=== PATIENT | male | born 1990 | race Caucasian/White ===

== ENCOUNTER 2019-12-21 16:15 | Emergency (ER) | payer MEDICARE, MEDICAID ==
--- NOTE | 2019-12-21 16:39 | EDM.PDOC ---
ED HPI GENERAL MEDICAL PROBLEM - General Chief Complaint: Skin Complaint Stated Complaint: Drainage from incision site Time Seen by Provider: 12/21/19 16:22 Source of Information: Reports: Patient - History of Present Illness INITIAL COMMENTS - FREE TEXT/NARRATIVE: Underwent liposuction to the left lower extremity 15 December 2019. Was placed on antibiotic for 5 days thereafter and was compliant. Moving about with routine ADL noted drainage from the proximal sugar aspect leg. There is fluid appearance with no warmth no pain feeling pressure improved after drainage occurred. Today getting into his vehicle pressure increased and a escort of fluid exited through the puncture site. No bleeding, no pain, no heat to the leg area. Onset: Today Duration: Minutes: Location: Reports: Lower Extremity, Left Quality: Reports: Pressure Severity: Moderate Improves with: Reports: None Worsens with: Reports: None - Related Data Allergies Allergy/AdvReac Type Severity Reaction Status Date / Time Penicillins Allergy Mild Rash Verified 12/21/19 16:37 sulfamethoxazole Allergy Rash Verified 12/21/19 16:37 [From Bactrim] trimethoprim [From Bactrim] Allergy Rash Verified 12/21/19 16:37 Home Meds: Home Meds Metoprolol Tartrate [Lopressor] 100 mg PO BID 04/11/14 [History] Phentermine HCl 37.5 mg PO DAILY 04/11/14 [History] buPROPion HCL [buPROPion SR] 200 mg PO BID 04/11/14 [History] Past Medical History Musculoskeletal History: Reports: None Psychiatric History: Reports: Developmental Delay - Past Surgical History Other Musculoskeletal Surgeries/Procedures:: Liposuction Social & Family History - Family History Family Medical History: Noncontributory - Living Situation & Occupation Living situation: Reports: with Family Occupation: Unemployed ED ROS GENERAL - Review of Systems Review Of Systems: Comprehensive ROS is negative, except as noted in HPI. ED EXAM, GENERAL - Physical Exam Exam: See Below Free Text/Narrative:: Alert oriented no distress. HEENT negative discharge or deformity. There is no respiratory distress with full breath motion and no audible wheezes. Focused examination left lower extremity shows puncture site from his liposuction to the mid medial left thigh with appearance of serous drainage. There is no warmth to touch, nor any exudate. Bruising as one would expect 5 days post procedure. Motion is intact he is able ambulate into the department with no discomfort. Departure - Departure Time of Disposition: 16:40 Disposition: Home, Self-Care 01 Condition: Good Clinical Impression: Drainage from surgical wound - Discharge Information *PRESCRIPTION DRUG MONITORING PROGRAM REVIEWED*: Not Applicable *COPY OF PRESCRIPTION DRUG MONITORING REPORT IN PATIENT ASHLYN: Not Applicable Forms: ED Department Discharge Additional Instructions: Continue your medications as directed and follow-up with your appointment on Friday as scheduled. Serous fluid drainage, no evidence of infection, culture pending will advise if antibiotics are needed. Follow-up with your surgical service on Friday as scheduled. - Problem List & Annotations (1) Drainage from surgical wound SNOMED Code(s): 670755618 Code(s): [id number] - Status: Acute Priority: High Current Visit: Yes Annotation/Comment:: Serous fluid drainage, no evidence of infection, culture pending will advise if antibiotics are needed. Follow-up with your surgical service on Friday as scheduled. - Problem List Review Problem List Initiated/Reviewed/Updated: Yes - Assessment/Plan Assessment:: Continue your medications as directed and follow-up with your appointment on Friday as scheduled. Serous fluid drainage, no evidence of infection, culture pending will advise if antibiotics are needed. Follow-up with your surgical service on Friday as scheduled. Plan: Continue your medications as directed and follow-up with your appointment on Friday as scheduled. Serous fluid drainage, no evidence of infection, culture pending will advise if antibiotics are needed. Follow-up with your surgical service on Friday as scheduled.
[2019-12-21 16:40] VITALS: BP 126/70; PULSE 84
== END 2019-12-21 16:55 | disposition home or self-care (01) ==
LOC: KA.ED 16:15
DX: T81.41XA Infection following a procedure, superficial incisional surgical site, initial encounter (principal); Z88.0 Allergy status to penicillin; Z88.2 Allergy status to sulfonamides; Z79.899 Other long term (current) drug therapy
CPT/HCPCS: 87070; 87205; 99283

== ENCOUNTER 2021-02-07 23:02 | Emergency (ER) | payer MEDICARE, MEDICAID ==
[2021-02-07 23:49] VITALS: BP 131/67; PULSE 91
--- NOTE | 2021-02-07 23:54 | EDM.PDOC ---
ED HPI GENERAL MEDICAL PROBLEM - General Chief Complaint: General Stated Complaint: CONCERNED ABOUT LOW O2 AFTER COVID DIAGNOSIS Time Seen by Provider: 02/07/21 23:30 Source of Information: Reports: Patient History Limitations: Reports: No Limitations - History of Present Illness INITIAL COMMENTS - FREE TEXT/NARRATIVE: 30 YO MORBIDLY OBESE WM PRESENTS TO ER WITH CONCERNS FOR LOW SAO2 TONIGHT FROM HOME O2 SAT MONITOR. PT WAS DIAGNOSED WITH COVID-19 ON 01/31/2021 AND WAS MANAGING HIS ILLNESS WELL BUT TONIGHT WHEN CHECKING SAO2 WITH HOME MONITOR FOUND SAO2-89% PROMPTING CONCERN AND ER EVALUATION. INITIAL VITAL SIGNS IN ER- P-86; BP- 131/67; SAO2-94% RA; RR- 24. NO SIGNS OF RESPIRATORY DISTRESS. PT REPORTS MILD NONPRODUCTIVE COUGH WITHOUT FEVER/CHILLS, NO NAUSEA/VOMITING/DIARRHEA. PT REPORTS DYSPNEA ON EXERTION WITHOUT CHEST PAIN. NO DYSPNEA AT REST. Onset Date: 01/31/21 Duration: Week(s): (1) Location: Reports: Generalized Severity: Mild Improves with: Reports: Rest Worsens with: Reports: Movement Associated Symptoms: Reports: Cough, Fever/Chills, Shortness of Breath. Denies: Chest Pain, Nausea/Vomiting - Related Data Allergies Allergy/AdvReac Type Severity Reaction Status Date / Time Penicillins Allergy Mild Rash Verified 02/07/21 23:12 sulfamethoxazole Allergy Rash Verified 02/07/21 23:12 [From Bactrim] trimethoprim [From Bactrim] Allergy Rash Verified 02/07/21 23:12 Home Meds: Home Meds Metoprolol Tartrate [Lopressor] 100 mg PO BID 04/11/14 [History] buPROPion HCL [buPROPion SR] 200 mg PO DAILY 04/11/14 [History] Albuterol [Ventolin HFA] 2 puff INH Q4H PRN 12/21/19 [History] lisinopriL [Lisinopril] 10 mg PO DAILY 12/21/19 [History] Cholecalciferol (Vitamin D3) [Vitamin D3] 2,000 unit PO DAILY 02/07/21 [History] Cyanocobalamin (Vitamin B12) [Vitamin B13] 500 mcg PO DAILY 02/07/21 [History] Fluticasone Propionate [Flonase] 1 spray NASBOTH BID PRN 02/07/21 [History] Multivitamin with Minerals [Multivitamins with Minerals] 1 each PO DAILY 02/07/21 [History] Nystatin [Nystop] 1 applic TOP DAILY PRN 02/07/21 [History] Salicylic Acid 10 ml TP DAILY PRN 02/07/21 [History] Testosterone [Androderm] 1 each TD BEDTIME 02/07/21 [History] predniSONE [Prednisone] 50 mg PO DAILY #5 tablet 02/08/21 [Rx] Past Medical History HEENT History: Reports: Impaired Vision Cardiovascular History: Reports: Hypertension Musculoskeletal History: Reports: None Psychiatric History: Reports: Developmental Delay Endocrine/Metabolic History: Reports: Obesity/BMI 30+, Other (See Below) Other Endocrine/Metabolic History: border line diabetes Dermatologic History: Reports: Other (See Below) Other Dermatologic History: lymphedema - Past Surgical History Other Musculoskeletal Surgeries/Procedures:: Liposuction Social & Family History - Family History Family Medical History: No Pertinent Family History - Tobacco Use Tobacco Use Status *Q: Never Tobacco User - Caffeine Use Caffeine Use: Reports: Soda - Recreational Drug Use Recreational Drug Use: No - Living Situation & Occupation Living situation: Reports: with Family Occupation: Unemployed ED ROS GENERAL - Review of Systems Review Of Systems: See Below Constitutional: Reports: Fever, Chills, Malaise HEENT: Reports: Rhinitis Respiratory: Reports: Shortness of Breath, Cough Cardiovascular: Reports: No Symptoms Endocrine: Reports: No Symptoms GI/Abdominal: Reports: No Symptoms : Reports: No Symptoms Musculoskeletal: Reports: No Symptoms Skin: Reports: No Symptoms Neurological: Reports: No Symptoms Psychiatric: Reports: No Symptoms Hematologic/Lymphatic: Reports: No Symptoms Immunologic: Reports: No Symptoms ED EXAM, GENERAL - Physical Exam Exam: See Below Exam Limited By: No Limitations General Appearance: Alert, WD/WN, No Apparent Distress Ears: Normal External Exam, Normal Canal, Hearing Grossly Normal, Normal TMs Ear Exam: Bilateral Ear: Auricle Normal, Canal Normal, TM normal Nose: Normal Mucosa, No Blood, Clear Rhinorrhea Throat/Mouth: Normal Inspection, Normal Lips, Normal Teeth, Normal Gums, Normal Oropharynx, Normal Voice, No Airway Compromise Head: Atraumatic, Normocephalic Neck: Normal Inspection, Supple, Non-Tender, Full Range of Motion Respiratory/Chest: No Respiratory Distress, Lungs Clear, Normal Breath Sounds, No Accessory Muscle Use, Chest Non-Tender Cardiovascular: Normal Peripheral Pulses, Regular Rate, Rhythm, No Edema, No Gallop, No JVD, No Murmur, No Rub GI/Abdominal: Normal Bowel Sounds, Soft, Non-Tender, No Organomegaly, No Distention, No Abnormal Bruit, No Mass Back Exam: Normal Inspection, Full Range of Motion, NT Extremities: Normal Inspection, Normal Range of Motion, Non-Tender, Normal Capillary Refill, No Pedal Edema Neurological: Alert, Oriented, CN II-XII Intact, Normal Cognition, Normal Gait, No Motor/Sensory Deficits Psychiatric: Normal Affect, Normal Mood Skin Exam: Warm, Dry, Intact, Normal Color, No Rash Lymphatic: No Adenopathy Course - Vital Signs Last Recorded V/S: Last Vital Signs Temp 97.8 F 02/07/21 23:05 Pulse 91 02/07/21 23:05 Resp 28 H 02/07/21 23:05 BP 131/67 02/07/21 23:05 Pulse Ox 94 L 02/07/21 23:05 - Orders/Labs/Meds Orders: Active Orders 24 hr Category Date Time Status Chest 2V [CR] Stat Exams 02/07/21 23:25 Ordered - Radiology Interpretation Free Text/Narrative:: CXR- BILATERAL INFILTRATE CONSISTENT WITH VIRAL PNEUMONIA Departure - Departure Time of Disposition: 00:10 Disposition: Home, Self-Care 01 Condition: Fair Clinical Impression: Pneumonia due to COVID-19 virus - Discharge Information Prescriptions: predniSONE [Prednisone] 50 mg PO DAILY #5 tablet Instructions: 10 Things You Can Do to Manage Your COVID-19 Symptoms at Home - [facility] (11/10/2020) Referrals: Joe [facility] [employer] [Primary Care Provider] - Forms: ED Department Discharge Sepsis Event Note (ED) - Focused Exam Vital Signs: Vital Signs Temp Pulse Resp BP Pulse Ox 02/07/21 23:05 97.8 F 91 28 H 131/67 94 L - My Orders Last 24 Hours: My Active Orders 02/07/21 23:25 Chest 2V [CR] Stat - Assessment/Plan Last 24 Hours: My Active Orders 02/07/21 23:25 Chest 2V [CR] Stat Assessment:: 1. COVID PNEUMONIA Plan: 1. DISCHARGE HOME 2. ALBUTEROL HFA 2 PUFFS EVERY 4 HOURS AND NEEDED FOR SHORTNESS OF BREATH 3. PREDNISONE 50MG DAILY X 5 DAYS 4. TAKE ZINC/VIT C/VIT D DAILY 5. ZYRTEC 10MG DAILY FOR COUGH/CONGESTION 6. FOLLOW UP WITH PCP FOR FURTHER EVALUATION AND TREATMENT 7. RETURN TO ER FOR WORSENING SYMPTOMS
[2021-02-08] MEDS ORDERED: Albuterol 8 GM Inhaler INH ONE (00:04)
[2021-02-08] MEDS ORDERED: methylPREDNISolone Sodium Succinate 125 MG/2 ML SDV IM ONE (00:06)
--- NOTE | 2021-02-08 08:51 | CR ---
[id number] RAD/RAD Chest PA And Lateral EXAM: RAD Chest PA And Lateral INDICATION: COVID COMPARISON: None. DISCUSSION: Cardiomediastinal silhouette is normal in size and contour. Bibasilar pulmonary infiltrates, left greater than right. No pneumothorax or pleural effusion. Low lung volumes associated vascular crowding. IMPRESSION: Bibasilar pulmonary infiltrates, left greater than right. Alon Mancini DO 02/08/21 0850 Thank you for allowing us to participate in the care of your patient.
== END 2021-02-08 00:34 | disposition home or self-care (01) ==
LOC: KA.ED 23:02
DX: U07.1 COVID-19 (principal); J12.82 Pneumonia due to coronavirus disease 2019; I10 Essential (primary) hypertension; E66.9 Obesity, unspecified; Z88.0 Allergy status to penicillin; Z88.1 Allergy status to other antibiotic agents; Z68.44 Body mass index [BMI] 60.0-69.9, adult; Z79.899 Other long term (current) drug therapy
CPT/HCPCS: 71046; 96372; 99283; 99284; A9270; J2930

== ENCOUNTER 2022-03-02 16:23 | Emergency (ER) | payer OTHER, MEDICARE, MEDICAID ==
[2022-03-02] MEDS ORDERED: Aspirin 81 MG Tab.Chew PO ONE (16:43)
[2022-03-02 17:28] LABS: ANION GAP 9.8 mmol/L (5-15)
[2022-03-02] MEDS ORDERED: traMADol 50 MG Tab PO PRN (17:47)
== END 2022-03-02 18:00 | disposition home or self-care (01) ==
LOC: KA.ED 16:23
DX: R07.81 Pleurodynia (principal); I10 Essential (primary) hypertension; E66.9 Obesity, unspecified; Z68.44 Body mass index [BMI] 60.0-69.9, adult; Z88.0 Allergy status to penicillin; Z88.2 Allergy status to sulfonamides; Z79.899 Other long term (current) drug therapy; Z86.16 Personal history of COVID-19; V49.40XA Driver injured in collision with unspecified motor vehicles in traffic accident, initial encounter; Y92.410 Unspecified street and highway as the place of occurrence of the external cause
CPT/HCPCS: 36415; 71101-LT; 80053; 84484; 85025; 93005; 93010; 99284; A9270-GY

== ENCOUNTER 2022-06-15 19:05 | Emergency (ER) | payer MEDICARE, MEDICAID ==
[2022-06-15 19:50] LABS: ANION GAP 12.1 mmol/L (5-15); CHLORIDE,CL 102 mmol/L (98-107); SODIUM,NA 138 mmol/L (136-145)
[2022-06-15 19:52] LABS: ESTIMATED GFR 116 mL/min (>=60)
[2022-06-15 20:04] LABS: RESPIRATORY SYNCYTIAL VIR NAA NEGATIVE (NEGATIVE)
[2022-06-15 20:07] LABS: CORONAVIRUS COVID-19 NAA NEGATIVE (NEGATIVE)
[2022-06-15] MEDS ORDERED: Levofloxacin 500 MG Tab PO ONE (20:57)
== END 2022-06-15 21:30 | disposition home or self-care (01) ==
LOC: KA.ED 19:05
DX: U07.1 COVID-19 (principal); D72.829 Elevated white blood cell count, unspecified; I10 Essential (primary) hypertension; E66.9 Obesity, unspecified; Z68.44 Body mass index [BMI] 60.0-69.9, adult; Z88.0 Allergy status to penicillin; Z88.1 Allergy status to other antibiotic agents; Z79.899 Other long term (current) drug therapy; Z79.84 Long term (current) use of oral hypoglycemic drugs; Z86.16 Personal history of COVID-19
CPT/HCPCS: 0241U; 36415; 71045; 80053; 81001; 81003; 83605; 83880; 84484; 85025; 87040; 87086; 87088; 93005; 93010; 99284; A9270